=== PATIENT | male | born 1965 | race African-American/Black ===

== ENCOUNTER → 2021-06-09 | Outpatient (CLI) | payer OTHER ==
--- NOTE | 2021-06-09 14:38 | KCIC ---
Exam Date: 06/09/2021 8:50 AM MRI RIGHT LOWER EXTREMITY JOINT WITHOUT Indication: Reason: RIGHT KNEE PAIN / Spl. Instructions: New injury stepping in a pothole. / History: first injury . Arthritis, swlling, posterior pain. Two prev surgeries. TECHNIQUE: Routine multiplanar MR imaging of the knee was performed without contrast. FINDINGS: The medial meniscus is intact and within normal limits for age. There is extrusion of the body of lateral meniscus. The anterior horn of the lateral meniscus is sma ll in size with abnormal signal and morphology consistent with complex tearing which extends into the body. Complex tearing is also seen involving the posterior horn of the lateral meniscus near the ro ot. The anterior cruciate ligament, posterior cruciate ligament, medial collateral ligament, and lateral collateral ligament complex are intact. Patellofemoral extensor mechanism and popliteus tendon are w ithin normal limits. Tricompartment multifocal full and partial thickness chondral defects are noted, most prominent in th e lateral compartment Bone marrow demonstrates benign signal on all sequences. No acute fracture is seen. Small tricompar tment osteophytes are noted. Physiologic joint fluid is present. There is a moderate popliteal cyst. IMPRESSION: Complex tearing involving the lateral meniscus diffusely. Tricompartment full and partial thickness chondral defects are noted, most prominent in the lateral c ompartment. Moderate popliteal cyst noted. Electronically signed by: Varun Real MD (06/09/2021 2:36 PM) [id number]
== END ==
LOC: KCIC MRI 08:16
PROVIDERS: ATTEND Orthopaedic Surgery Sports Medicine
DX: S83.271A Complex tear of lateral meniscus, current injury, right knee, initial encounter (principal); M95.8 Other specified acquired deformities of musculoskeletal system; M71.21 Synovial cyst of popliteal space [Baker], right knee; M25.761 Osteophyte, right knee; X58.XXXA Exposure to other specified factors, initial encounter; Y93.89 Activity, other specified; Y92.89 Other specified places as the place of occurrence of the external cause; Y99.8 Other external cause status
CPT/HCPCS: 73721